=== PATIENT | female | born 1990 | race Caucasian/White ===

== ENCOUNTER 2018-01-17 16:42 | Inpatient (IN) | payer BC ==
[~2018-01-17] VITALS: Ht 170.2 cm; Wt 80.3 kg
[2018-01-17] MEDS: LACTATED RINGERS 1,000 ML IV SCH (17:30)
[2018-01-17] MEDS ORDERED: LACTATED RINGERS 1,000 ML IV PRN (17:40)
[2018-01-17] MEDS ORDERED: MAGNESIUM SULF. PMX 20GM/500ML 500 ML IV ONE (18:00)
[2018-01-17] MEDS ORDERED: PLEASE ENTER HEIGHT AND WEIGHT MC SCH (18:01)
[2018-01-17] MEDS ORDERED: MAGNESIUM SULFATE IVPB ONE (18:30)
[2018-01-17] MEDS: MAGNESIUM SULF. PMX 20GM/500ML 500 ML IV SCH (18:35)
[2018-01-17 19:41] LABS: BASOPHILS # (AUTO) 0.01 x10^3/uL (0-0.1); BASOPHILS % (AUTO) 0 % (0-1); EOSINOPHILS % (AUTO) 1 % (1-7); LYMPHOCYTES # (AUTO) 1.66 x10^3/uL (1-3.4); LYMPHOCYTES % (AUTO) 16 % (22-44); MD NO; MEAN CORPUSCULAR HEMOGLOBIN 31.5 pg (27.0-34.8); MEAN CORPUSCULAR HGB CONC 34.6 g/dL (32.4-35.8); MEAN CORPUSCULAR VOLUME 90.8 fL (80-100); MEAN PLATELET VOLUME 7.8 fL (7.4-10.4); MONOCYTES # (AUTO) 0.57 x10^3/uL (0.2-0.8); MONOCYTES % (AUTO) 5 % (2-9); NEUTROPHILS # (AUTO) 8.41 x10^3/uL (1.8-6.8); NEUTROPHILS % (AUTO) 78 % (42-75); PLATELET COUNT 175 x10^3/uL (130-400); RED BLOOD COUNT 3.79 x10^6/uL (3.82-5.3)
[2018-01-17 19:53] LABS: ALANINE AMINOTRANSFERASE 21 U/L (12-78); ALBUMIN 2.8 g/dL (3.4-5.0); ANION GAP 9 mmol/L (5-15); CALCIUM 7.9 mg/dL (8.5-10.1); CHLORIDE 107 mmol/L (98-107); CREATININE 0.59 mg/dL (0.55-1.02)
[2018-01-17 19:55] LABS: ALKALINE PHOSPHATASE 83 U/L (45-117); BILIRUBIN,TOTAL 0.2 mg/dL (0.2-1.0); TOTAL PROTEIN 6.4 g/dL (6.4-8.2)
[2018-01-17] MEDS ORDERED: AZITHROMYCIN 600 MG TABLET PO SCH (20:30)
[2018-01-17 20:43] LABS: MICROSCOPIC NOT IND
[2018-01-17] MEDS ORDERED: INDOMETHACIN 50 MG CAPSULE ONE (20:44)
[2018-01-17] MEDS: AMPICILLIN 2 GM in SODIUM CHLORIDE 0.9% 100 ML IV SCH (20:45)
[2018-01-17] MEDS ORDERED: INDOMETHACIN 50 MG CAPSULE PO ONE (21:00)
[2018-01-17] MEDS ORDERED: AMPICILLIN 2 GM IV SCH (21:00)
[2018-01-17 21:17] VITALS: BP 110/60
[2018-01-18] MEDS ORDERED: MAGNESIUM SULF. PMX 20GM/500ML 500 ML IV ONE ×2 (00:33→09:46)
[2018-01-18] MEDS: MAGNESIUM SULF. PMX 20GM/500ML 500 ML IV SCH ×2 (00:35→09:49)
[2018-01-18] MEDS: AMPICILLIN 2 GM in SODIUM CHLORIDE 0.9% 100 ML IV SCH ×4 (02:48→20:53)
[2018-01-18] MEDS ORDERED: ONDANSETRON 2MG/ML, 2ML ONE (03:53)
[2018-01-18] MEDS ORDERED: ONDANSETRON 2MG/ML, 2ML IVPush PRN (04:00)
[2018-01-18] MEDS: DOCUSATE 100 MG CAPSULE PO SCH (09:00)
[2018-01-18] MEDS ORDERED: MAGNESIUM SULF. PMX 20GM/500ML 500 ML IV SCH (16:44)
[2018-01-18 19:00] VITALS: BP 130/56
[2018-01-19] MEDS ORDERED: MAGNESIUM SULF. PMX 20GM/500ML 500 ML IV ONE ×2 (00:30→21:24)
[2018-01-19] MEDS: MAGNESIUM SULF. PMX 20GM/500ML 500 ML IV SCH ×2 (00:43→21:27)
[2018-01-19] MEDS: AMPICILLIN 2 GM in SODIUM CHLORIDE 0.9% 100 ML IV SCH ×2 (02:33→09:05)
[2018-01-19] MEDS: LACTATED RINGERS 1,000 ML IV SCH (09:05)
[2018-01-19] MEDS ORDERED: DOCUSATE 100 MG CAPSULE ONE ×2 (09:14→20:49)
[2018-01-19] MEDS: DOCUSATE 100 MG CAPSULE PO SCH (21:00)
[2018-01-20] MEDS ORDERED: DOCUSATE 100 MG CAPSULE ONE ×2 (10:38→21:11)
[2018-01-20] MEDS ORDERED: INDOMETHACIN 50 MG CAPSULE PO ONE (13:00)
[2018-01-20] MEDS ORDERED: INDOMETHACIN 50 MG CAPSULE ONE (13:15)
[2018-01-20 20:59] VITALS: BP 109/55
[2018-01-20] MEDS: DOCUSATE 100 MG CAPSULE PO SCH (21:13)
[2018-01-21] MEDS ORDERED: DOCUSATE 100 MG CAPSULE ONE ×2 (08:54→20:55)
[2018-01-21] MEDS ORDERED: PREN1TAB60 PO (08:57)
[2018-01-21] MEDS: DOCUSATE 100 MG CAPSULE PO SCH ×3 (08:57→21:00)
[2018-01-22] MEDS ORDERED: DOCUSATE 100 MG CAPSULE ONE (08:55)
[2018-01-22] MEDS: DOCUSATE 100 MG CAPSULE PO SCH ×3 (08:58→21:00)
[2018-01-22 20:40] VITALS: BP 116/54
[2018-01-23] MEDS ORDERED: DOCUSATE 100 MG CAPSULE ONE (08:29)
[2018-01-23] MEDS: DOCUSATE 100 MG CAPSULE PO SCH (09:02)
[2018-01-24] MEDS ORDERED: DOCUSATE 100 MG CAPSULE ONE (08:40)
[2018-01-24] MEDS ORDERED: BUPIVACAINE 0.25% ONE (08:54)
[2018-01-24] MEDS ORDERED: FENTANYL PF 100 MCG/2ML ONE (08:54)
[2018-01-24] MEDS ORDERED: FENTANYL/BUPIV./NS/PF 250 ML EPIDCONT ONE (08:54)
[2018-01-24] MEDS: DOCUSATE 100 MG CAPSULE PO SCH (08:56)
[2018-01-24] MEDS ORDERED: NIFE10CA PO (10:35)
[2018-01-24] MEDS ORDERED: DOCU-131 PO (10:36)
== END 2018-01-24 11:30 | disposition home or self-care (01) | DRG 781 ==
LOC: LDOP 16:42 → LDIP 17:40
PROVIDERS: ADMIT Obstetrics & Gynecology; ATTEND Obstetrics & Gynecology
PROC: 30233S1 Transfusion of Nonautologous Globulin into Peripheral Vein, Percutaneous Approach (ICD-10-PCS; principal; 2018-01-17)
DX: O30.042 Twin pregnancy, dichorionic/diamniotic, second trimester (principal); O99.820 Streptococcus B carrier state complicating pregnancy; O45.92 Premature separation of placenta, unspecified, second trimester; O42.912 Preterm premature rupture of membranes, unspecified as to length of time between rupture and onset of labor, second trimester; O60.00 Preterm labor without delivery, unspecified trimester; Z3A.23 23 weeks gestation of pregnancy
CPT/HCPCS: 36415; 76805; 76815; 80053; 81003; 83735; 84112; 85025; 85460; 86850; 86900; 87081; 87086; J0290; J2790; J3475; J7120

== ENCOUNTER 2018-03-15 22:45 | Outpatient (CLI) | payer BC ==
[~2018-03-15] VITALS: Ht 170.2 cm; Wt 86.3 kg
[~2018-03-15 22:45] MED LIST: DOCU-131 PO; NIFE10CA PO; PREN1TAB60 PO
[2018-03-15 23:37] LABS: MICROSCOPIC NOT IND
== END 2018-03-16 02:10 | disposition home or self-care (01) ==
LOC: LDOP 22:45
PROVIDERS: ATTEND Obstetrics & Gynecology
DX: O26.893 Other specified pregnancy related conditions, third trimester (principal); R10.9 Unspecified abdominal pain; Z3A.31 31 weeks gestation of pregnancy
CPT/HCPCS: 59025; 81003; 99211; G0463

== ENCOUNTER 2018-03-22 08:46 | Inpatient (IN) | payer BC ==
[~2018-03-22] VITALS: Ht 170.2 cm; Wt 89.0 kg
[2018-03-22] MEDS ORDERED: BETAMETHASONE 6 MG/ML, 5ML IM ONE ×2 (09:54→10:00)
[2018-03-22 10:35] VITALS: BP 132/63
[2018-03-22] MEDS: LACTATED RINGERS 1,000 ML IV SCH ×2 (11:23→19:34)
[2018-03-22] MEDS ORDERED: CALCIUM CARBONATE 500 MG TAB.CHEW ONE ×3 (17:53→21:41)
[2018-03-22] MEDS: CALCIUM CARBONATE 500 MG TAB.CHEW PO PRN ×2 (17:56→21:42)
[2018-03-22 19:49] VITALS: BP 101/60
[2018-03-23] MEDS ORDERED: CALCIUM CARBONATE 500 MG TAB.CHEW ONE (01:43)
[2018-03-23] MEDS: CALCIUM CARBONATE 500 MG TAB.CHEW PO PRN (01:52)
[2018-03-23] MEDS: LACTATED RINGERS 1,000 ML IV SCH ×4 (05:26→16:22)
[2018-03-23] MEDS ORDERED: LACTATED RINGERS 1,000 ML IV SCH ×3 (07:46→08:22)
[2018-03-23] MEDS ORDERED: SODIUM CITRATE/CITRIC ACID 30 ML UDC ONE (07:46)
[2018-03-23] MEDS ORDERED: METOCLOPRAMIDE 5 MG/ML, 2ML ONE (07:46)
[2018-03-23] MEDS ORDERED: OXYTOCIN 30U/ 0.9% NaCL 500ML 500 ML IV SCH ×2 (07:46→08:22)
[2018-03-23] MEDS ORDERED: METOCLOPRAMIDE 5 MG/ML, 2ML IVPush ONE (08:00)
[2018-03-23] MEDS ORDERED: BETAMETHASONE 6 MG/ML, 5ML IM ONE (08:00)
[2018-03-23] MEDS ORDERED: LACTATED RINGERS 1,000 ML IVBOLUS ONE (08:00)
[2018-03-23] MEDS ORDERED: SODIUM CITRATE/CITRIC ACID 30 ML UDC PO ONE (08:00)
[2018-03-23] MEDS ORDERED: OXYTOCIN 30U/ 0.9% NaCL 500ML 500 ML ONE (08:07)
[2018-03-23] MEDS ORDERED: NEWBORN KIT ONE (08:07)
[2018-03-23] MEDS ORDERED: MAGNESIUM SULFATE PMX 4GM/100M 100 ML ONE (08:10)
[2018-03-23] MEDS ORDERED: MAGNESIUM SULFATE PMX 4GM/100M 100 ML IV ONE (08:10)
[2018-03-23 08:19] LABS: BASOPHILS # (AUTO) 0.01 x10^3/uL (0-0.1); BASOPHILS % (AUTO) 0 % (0-1); EOSINOPHILS % (AUTO) 0 % (1-7); LYMPHOCYTES # (AUTO) 1.26 x10^3/uL (1-3.4); LYMPHOCYTES % (AUTO) 8 % (22-44); MD NO; MEAN CORPUSCULAR HEMOGLOBIN 28.7 pg (27.0-34.8); MEAN CORPUSCULAR HGB CONC 33.6 g/dL (32.4-35.8); MEAN CORPUSCULAR VOLUME 85.4 fL (80-100); MONOCYTES # (AUTO) 0.55 x10^3/uL (0.2-0.8); MONOCYTES % (AUTO) 3 % (2-9); NEUTROPHILS # (AUTO) 14.62 x10^3/uL (1.8-6.8); NEUTROPHILS % (AUTO) 89 % (42-75); PLATELET COUNT 187 x10^3/uL (130-400); RED BLOOD COUNT 3.35 x10^6/uL (3.82-5.3); RED CELL DISTRIBUTION WIDTH 12.4 % (9.6-15.2)
[2018-03-23] MEDS ORDERED: morphine SULFATE/PF 0.5 MG/ML, 10ML ONE (08:26)
[2018-03-23] MEDS ORDERED: OXYcodone/APAP 5/325MG TABLET PO PRN (08:30)
[2018-03-23] MEDS ORDERED: IBUPROFEN 600 MG TABLET PO PRN (08:30)
[2018-03-23] MEDS ORDERED: MEASLES,MUMPS&RUBELLA VACC/PF 0.5 ML SQ-VACC PRN (08:30)
[2018-03-23] MEDS ORDERED: CALCIUM CARBONATE 500 MG TAB.CHEW PO PRN (08:30)
[2018-03-23] MEDS ORDERED: DIPH,PERTUSS(ACELL),TET VAC/PF NC IM-VACC PRN (08:30)
[2018-03-23] MEDS ORDERED: ACETAMINOPHEN 325 MG TABLET PO PRN ×2 (08:30)
[2018-03-23] MEDS ORDERED: MISOPROSTOL 200 MCG TABLET PR PRN (08:30)
[2018-03-23] MEDS ORDERED: morphine SULFATE 10 MG/ML, 1ML IVPush PRN ×2 (08:30)
[2018-03-23] MEDS ORDERED: ONDANSETRON 2MG/ML, 2ML IV PRN (08:30)
[2018-03-23] MEDS ORDERED: ONDANSETRON 2MG/ML, 2ML ONE (08:59)
[2018-03-23] MEDS ORDERED: PHENYLEPHRINE 10 MG/ML ONE (08:59)
[2018-03-23] MEDS ORDERED: CEFAZOLIN 1,000 MG ONE (08:59)
[2018-03-23] MEDS ORDERED: OXYTOCIN 10 UNITS/ML, 1ML ONE (08:59)
[2018-03-23] MEDS ORDERED: EPHEDRINE 50 MG/ML, 1ML ONE (08:59)
[2018-03-23] MEDS ORDERED: WATER-INJECTION,STERILE 10 ML IV ONE (08:59)
[2018-03-23] MEDS: PRENATAL VIT/IRON/FA 1 EACH TABLET PO SCH (09:00)
[2018-03-23] MEDS ORDERED: GLYCOPYRROLATE 0.2MG/1ML, 5ML ONE (10:33)
[2018-03-23] MEDS ORDERED: KETOROLAC 30 MG/1 ML ONE (10:53)
[2018-03-23] MEDS: KETOROLAC 30 MG/1 ML IV SCH ×3 (10:55→23:13)
[2018-03-23] MEDS ORDERED: DIPHENHYDRAMINE 50 MG/ML, 1ML ONE (12:12)
[2018-03-23] MEDS: DIPHENHYDRAMINE 50 MG/ML, 1ML IVPush PRN ×2 (12:18→23:21)
[2018-03-23 12:45] VITALS: BP 115/65
[2018-03-23 16:30] VITALS: BP 126/69
[2018-03-23 17:04] LABS: BASOPHILS % (AUTO) 0 % (0-1); EOSINOPHILS % (AUTO) 0 % (1-7); LYMPHOCYTES # (AUTO) 0.95 x10^3/uL (1-3.4); LYMPHOCYTES % (AUTO) 5 % (22-44); MD NO; MEAN CORPUSCULAR VOLUME 85.4 fL (80-100); MEAN PLATELET VOLUME 8.7 fL (7.4-10.4); MONOCYTES # (AUTO) 0.79 x10^3/uL (0.2-0.8); MONOCYTES % (AUTO) 4 % (2-9); NEUTROPHILS # (AUTO) 18.34 x10^3/uL (1.8-6.8); NEUTROPHILS % (AUTO) 91 % (42-75); PLATELET COUNT 173 x10^3/uL (130-400); RED BLOOD COUNT 2.83 x10^6/uL (3.82-5.3); RED CELL DISTRIBUTION WIDTH 12.9 % (9.6-15.2)
[2018-03-23 19:30] VITALS: BP 118/67
[2018-03-23 23:17] VITALS: BP 112/66
[2018-03-24] MEDS: KETOROLAC 30 MG/1 ML IV SCH ×2 (04:45→10:45)
[2018-03-24 04:48] VITALS: BP 112/68
[2018-03-24 08:00] VITALS: BP 122/62
[2018-03-24] MEDS: DOCUSATE 100 MG CAPSULE PO PRN ×2 (08:18→22:58)
[2018-03-24] MEDS: PRENATAL VIT/IRON/FA 1 EACH TABLET PO SCH (08:18)
[2018-03-24] MEDS: IBUPROFEN 600 MG TABLET PO PRN ×3 (10:54→22:58)
[2018-03-24] MEDS: OXYcodone/APAP 5/325MG TABLET PO PRN ×2 (18:43→23:06)
[2018-03-24 19:30] VITALS: BP 121/78
[2018-03-25 07:10] VITALS: BP 117/74
[2018-03-25] MEDS: PRENATAL VIT/IRON/FA 1 EACH TABLET PO SCH (07:35)
[2018-03-25] MEDS: IBUPROFEN 600 MG TABLET PO PRN ×3 (07:35→23:13)
[2018-03-25] MEDS: OXYcodone/APAP 5/325MG TABLET PO PRN ×4 (07:35→23:13)
[2018-03-25 19:15] VITALS: BP 125/71
[2018-03-25] MEDS: DOCUSATE 100 MG CAPSULE PO PRN (19:32)
[2018-03-26] MEDS: OXYcodone/APAP 5/325MG TABLET PO PRN ×3 (07:41→21:21)
[2018-03-26] MEDS: PRENATAL VIT/IRON/FA 1 EACH TABLET PO SCH (07:41)
[2018-03-26] MEDS: DOCUSATE 100 MG CAPSULE PO PRN ×2 (07:41→21:21)
[2018-03-26] MEDS: IBUPROFEN 600 MG TABLET PO PRN ×3 (07:41→21:21)
[2018-03-26 07:50] VITALS: BP 116/72
[2018-03-26 20:00] VITALS: BP 109/56
[2018-03-27] MEDS: IBUPROFEN 600 MG TABLET PO PRN ×2 (02:46→10:36)
[2018-03-27] MEDS: OXYcodone/APAP 5/325MG TABLET PO PRN ×3 (02:46→15:23)
[2018-03-27 07:30] VITALS: BP 118/68
[2018-03-27] MEDS ORDERED: IBUP-1222 PO (10:15)
[2018-03-27] MEDS ORDERED: OXYC-302 PO (10:16)
[2018-03-27] MEDS ORDERED: ACYC-114 PO (10:17)
[2018-03-27] MEDS ORDERED: ACYC30OI2 TP (10:20)
[2018-03-27] MEDS: PRENATAL VIT/IRON/FA 1 EACH TABLET PO SCH (10:35)
[2018-03-27] MEDS: DOCUSATE 100 MG CAPSULE PO PRN (10:35)
== END 2018-03-27 15:25 | disposition home or self-care (01) | DRG 765 ==
LOC: LDOP 08:46 → LDIP 09:36 → 2NW 03-23 10:12 → LDIP 03-23 10:22 → 2NW 03-23 12:09
PROVIDERS: ADMIT Obstetrics & Gynecology; ATTEND Obstetrics & Gynecology
PROC: 10D00Z1 Extraction of Products of Conception, Low, Open Approach (ICD-10-PCS; principal; 2018-03-23)
DX: O30.043 Twin pregnancy, dichorionic/diamniotic, third trimester (principal); O60.14X2 Preterm labor third trimester with preterm delivery third trimester, fetus 2; O69.81X2 Labor and delivery complicated by cord around neck, without compression, fetus 2; O32.1XX0 Maternal care for breech presentation, not applicable or unspecified; Z37.2 Twins, both liveborn; Z3A.32 32 weeks gestation of pregnancy
CPT/HCPCS: 36415; 76815; 76817; 82803; 85025; 86850; 86870; 86900; 86922; 86923; 88305; J0690; J0702; J1885; J2274; J2405; J3490; C1765; J1200; J2370; J2590; J2765; J3475; J7120